=== PATIENT | female | born 1955 | race Caucasian/White ===

== ENCOUNTER 2020-07-14 15:30 | Emergency (ER) | payer MEDICARE, OTHER ==
[~2020-07-14 15:30] MED LIST: CYCLOBENZAPRINE10 MG PO; K-DUR TAB 10 M10 MEQ PO; KLONOPIN1 MG PO; LOSARTAN-HCTZ1 EACH PO; PRAVACHOL40 MG PO; PROZAC20 MG PO
== END 2020-07-14 16:10 | disposition home or self-care (01) ==
LOC: ER1 15:30
DX: U07.1 COVID-19 (principal); I10 Essential (primary) hypertension
CPT/HCPCS: 99283

== ENCOUNTER 2020-08-20 14:03 | Emergency (ER) | payer MEDICARE | END 2020-08-20 15:00 | disposition left against medical advice (07) | LOC: ER1 14:03 | DX: Z53.21 Procedure and treatment not carried out due to patient leaving prior to being seen by health care provider (principal) ==

== ENCOUNTER → 2021-08-14 | Outpatient (CLI) | payer BC | LOC: KOH-I 13:29 | DX: R22.2 Localized swelling, mass and lump, trunk (principal) | CPT/HCPCS: 76604 ==

== ENCOUNTER → 2021-08-24 | Outpatient (CLI) | payer MEDICARE | LOC: CT 15:16 | DX: R22.9 Localized swelling, mass and lump, unspecified (principal); R91.1 Solitary pulmonary nodule; J98.11 Atelectasis | CPT/HCPCS: 36415; 71260; 82565; 84520; Q9967 ==